=== PATIENT | female | born 1950 | race Caucasian/White ===

== ENCOUNTER 2023-06-15 22:35 | Emergency (ER) | payer MEDICARE, OTHER, SELFPAY ==
[2023-06-15 22:40] VITALS: BP 146/74
[2023-06-15 22:56] LABS: % Basophils 0.2 % (0-2); % Eosinophils 0.5 % (0-6); % Immature Granulocytes 0.3 % (0-0.5); % Lymphocytes 11.4 % (20.5-51.1); % Neutrophils 78.6 % (42.2-75.2); Absolute Eosinophils 0.1 10^3/uL (0-0.7); Absolute Lymphocytes 1.2 10^3/uL (1.2-3.4); Absolute Monocytes 0.9 10^3/uL (0.1-0.6); Absolute Neutrophils 8.1 10^3/uL (1.4-6.5); Hematocrit 37.6 % (37.0-47.0); Hemoglobin 13.3 g/dL (12.0-16.0); Mean Corp Hgb Conc. 35.4 g/dL (33.0-37.0); Mean Corpuscular Hgb 30.7 pg (27.0-31.0); Mean Corpuscular Volume 86.8 fL (81.0-99.0); Mean Platelet Volume 8.8 fL (7.4-10.4); Nucleated Red Blood Cells % 0 %; Platelet Count 307 10^3/uL (130-400); Red Blood Cell Count 4.33 10^6/uL (4.20-5.40); Red Cell Dist. Width 12.6 % (11.5-14.5); White Blood Cell Count 10.3 10^3/uL (4.8-10.8)
[2023-06-15 23:16] LABS: ALT (SGPT) 49 U/L (0-35); AST (SGOT) 75 U/L (14-36); Albumin 4.1 g/dl (3.5-5.0); Alkaline Phosphatase 86 U/L (38-126); Blood Urea Nitrogen 20 mg/dl (7-17); Calcium 9.8 mg/dl (8.4-10.2); Carbon Dioxide 31 mmol/L (22-30); Chloride 101 mmol/L (98-107); Glucose 151 mg/dl (70-99); Potassium 3.4 mmol/L (3.5-5.1); Sodium 134 mmol/L (135-145); Total Bilirubin 0.5 mg/dl (0.2-1.3); Total Protein 6.6 g/dl (6.3-8.2); eGFR > 60.00
[2023-06-16] VITALS: BP 133/70
--- NOTE | 2023-06-16 00:03 | ED.GENMED ---
History of Present Illness
General
Chief Complaint: Blood Pressure Problem
Source: patient
Exam Limitations: none
Time Seen by Provider: 06/15/23 23:49
Travel History
Have you had any contact with someone who has COVID-19?: No
Do you have any symptoms of coronavirus? Fever > 100 degrees, chills, cough, shortness of breath, sore throat, loss of taste or smell, muscle aches, or headache?: No
History of Present Illness
History of Present Illness:
This is a 72 year old female that comes in with c/o hypertension and feels her legs are swollen. Patient states that her has pancreatic cancer and is at the end. States that he is now on Hospice. States that she is under a lot of stress.
States that she as checking her BP at home and the systolic was 140-150/ 80 with a heart rate of 91. States that tonight she also felt that her ankles were swelling so she thought she needed to be seen. States that she has been sitting all day.
Denies any fever, chills, chest pain, SOB, abd pain, nausea, vomiting, diarrhea, headache, dizziness, urinary burning.
Past History
Past History
ED Past Surgical History: Appendectomy, Gynecological (Hysterectomy, Tubal) and Other (Breast augmentation and then removal of Implants)
Social History
Tobacco: Non-smoker
Alcohol: Occasional
Personal:
Living: with family
Review of Systems
Review of Systems
All Other Systems: ROS reviewed and negative except as documented in HPI and ROS
Constitutional: Reports no symptoms; Denies fever or chills
EENT: Reports no symptoms
Respiratory: Reports no symptoms; Denies cough or trouble breathing
Cardiac: Reports no symptoms; Denies chest pain
ABD/GI: Reports no symptoms; Denies abdominal pain, nausea, vomiting or diarrhea
: Reports no symptoms; Denies dysuria, frequency or urgency
Musculoskeletal: Reports other (Feels her ankles are swelling)
Skin: Reports no symptoms
Neurological: Reports no symptoms; Denies dizzy or headache
Psychiatric: Reports no symptoms
Phy Exam
General Physical Exam
General Presentation: well appearing and no apparent distress
General age: appears stated age
General Skin: warm and dry
General Habitus: elderly
General Mental: alert
General Hydration: appears well hydrated
ENT Exam
ENT Exam: TM's normal, pharynx normal and neck supple
Eye Exam
Eye Exam: EOMI
Cardiovascular Exam
Cardiovascular Exam: regular rate/rhythm, no edema, no murmur and normal peripheral pulses
Pulmonary Exam
Pulmonary Exam: lungs clear, no respiratory distress, no rales, chest non tender, no crackles, no rhonchi, no wheezing and no cough
Gastrointestinal Exam
Gastrointestinal Exam: normal bowel sounds, non tender, soft, no organomegaly, no pulsatile mass and non distended
Musculoskeletal Exam
Musculoskeletal Exam: full ROM and no edema
Skin Exam
Skin Exam: normal color, warm/dry, no rash and no petechia
Psychiatric Exam
Psychiatric Exam: normal mood/affect
Course
Orders/Labs/Results
Orders:
Orders
06/15/23 22:46
Complete Blood Count/With Diff Urgent
Comprehensive Metabolic Panel Urgent
Abnormal Lab Results
06/15/23
22:46
Absolute Neuts (auto) 8.1 H 10^3/uL
(1.4-6.5)
Absolute Monos (auto) 0.9 H 10^3/uL
(0.1-0.6)
Neutrophils % 78.6 H %
(42.2-75.2)
Lymphocytes % 11.4 L %
(20.5-51.1)
Sodium 134 L mmol/L
(135-145)
Potassium 3.4 L mmol/L
(3.5-5.1)
Carbon Dioxide 31 H mmol/L
(22-30)
BUN 20 H mg/dl
(7-17)
Glucose 151 H mg/dl
(70-99)
AST 75 H U/L
(14-36)
ALT 49 H U/L
(0-35)
06/15/23 22:46
06/15/23 22:46
Slight Dehydration. glucose nonfasting. ASt/ALT elevation.
Vital Signs
Initial and Last Documented VS:
Initial Vital Signs
Temp Pulse Resp BP Pulse Ox
97.9 F 86 16 146/74 99
06/15/23 22:40 06/15/23 22:40 06/15/23 22:40 06/15/23 22:40 06/15/23 22:40
Last Documented Vital Signs
Temp Pulse Resp BP Pulse Ox
97.9 F 86 16 146/74 99
06/15/23 22:40 06/15/23 22:40 06/15/23 22:40 06/15/23 22:40 06/15/23 22:40
MDM/Problems Addressed
Differential Diagnosis Includes:
Anxiety,
MDM/Problems Addressed:
This is a 72 year old female that comes in with c/o hypertension and her ankles swelling. States that her is on Hospice and dying of Pancreatic Cancer. States that she has been under a lot of stress. States that today she felt her BP was
elevated at 140-150 and that her ankles were swelling.
Explained to patient that right now her BP is 125/62. Patient states that she relaxed after she got the warm blanket. Explained that there is no obvious swelling in the ankles but she feels that they are swollen. At this time would not give patient
anything for her BP and suggested that she needs to follow up with the PCP as she may just need something to help with anxiety to get her over the hump. Patient to watch her sodium intake and elevate her legs when sitting around. Patient to return
with any concerns.
Chronic conditions affecting care:
NA
Acute Exacerbation and/or Progression of Chronic Illness:
NA
*Pulse Oximetry
Patient hypoxic: no
*EKG
Interpreted by ED Provider?: NA
Rate: EKG- N/A
*Technical Proposal Writer Interpretation
Rate: normal
Heart Rate: 81
Rhythm: sinus
*Critical Care Note
Total Time (30-74mins, 75-104mins- exclusive of procedures): Not Applicable
ED Attending Note
-
Portions of this chart may have been created with voice recognition software.� Occasional wrong word or��sound alike� substitutions may have occurred due to the inherent limitations of voice recognition software.
Discharge Plan
Departure
Patient Disposition: Home (Routine Discharge)
Date of Disposition: 06/16/23
Time of Disposition: 00:11
Patient with high blood pressure during this ER visit?: Yes
Condition: Good
Covid-19: Not Applicable
Discharge Problem:
Stress
Instructions: Anxiety, Adult (DC), BLOOD PRESSURE
Activity Restrictions/Additional Instructions:
As discussed, your blood work shows you are a little dehydrated. Please increase your water intake to 8-8oz glasses daily. Please watch your sodium intake as this will also cause swelling. Please follow up with the family doctor for recheck. You may
need something for the anxiety to help you. IF YOU HAVE ANY OTHER CONCERNS PLEASE RETURN TO THE EMERGENCY ROOM.
Interventions
Interventions:
*Risk Screen - Suicide Last Done: 06/16/23 00:00
*General Assessment Last Done: 06/15/23 22:40
*Neglect/Abuse Screening Last Done: 06/16/23 00:00
ED- Fall Risk Assessment Last Done: 06/16/23 00:00
*ED COVID-19 Vaccine History Last Done: 06/15/23 22:40
ED- Cardiac Assessment Last Done: 06/16/23 00:00
ED- Neurological Assessment Last Done: 06/16/23 00:00
ED- Pulmonary Assessment Last Done: 06/16/23 00:00
== END 2023-06-16 00:16 | disposition home or self-care (01) ==
LOC: EMR 22:35
PROVIDERS: Emergency Medicine; EMERGENCY PHYSICIAN Student in an Organized Health Care Education/Training Program
DX: Z73.3 Stress, not elsewhere classified (principal); Z63.8 Other specified problems related to primary support group; M79.89 Other specified soft tissue disorders; E86.0 Dehydration; I10 Essential (primary) hypertension; F41.9 Anxiety disorder, unspecified; Z88.2 Allergy status to sulfonamides
CPT/HCPCS: 99283; 80053; 85025

== ENCOUNTER 2023-06-21 15:07 | Inpatient (IN) | payer MEDICARE, OTHER, SELFPAY ==
--- NOTE | 2023-06-21 11:45 | ED.GENMED ---
History of Present Illness
<Anselmo Young PA-C - Last Filed: 06/21/23 15:12>
General
Chief Complaint: Overdose Intentional
Source: ambulance crew
Time Seen by Provider: 06/21/23 11:45
History of Present Illness
History of Present Illness:
72-year-old female presenting to the emergency department via EMS after family had found the patient in her bedroom unresponsive on the floor, suspected to have taken an unknown amount of Xanax at unknown time. EMS reports that patient's
last week and patient has been living on her own since. Family went to go check on the patient after not hearing from her in about 24 hours. EMS reports that patient is believed to have taken her 's Xanax as well as her own that
an unknown quantity. They found patient with hard and stool surrounding her. Unable to obtain any history from the patient due to her somnolence.
Past History
<Anselmo Young PA-C - Last Filed: 06/21/23 15:12>
Past History
ED Past Surgical History: Appendectomy, Gynecological (Hysterectomy, Tubal) and Other (Breast augmentation and then removal of Implants)
Social History
Tobacco: Non-smoker
Alcohol: Occasional
Drug: None
Personal:
Living: with family
Review of Systems
<Anselmo Young PA-C - Last Filed: 06/21/23 15:12>
Review of Systems
Unable to obtain full review of systems at this time due to: due to acuity
Phy Exam
<Anselmo Young PA-C - Last Filed: 06/21/23 15:12>
Physical Exam
Physical Exam:
GENERAL: Somnolent but arousable to loud voice and sternal rub
Head: Normocephalic atraumatic
EYE: conjunctiva clear, pupils 3 mm, sluggish
NECK: Supple
ENT: o/p clr, dry mucous membranes
CARDIAC: Regular rate and rhythm, no murmur
LUNGS: Clear breath sounds bilaterally, no acute respiratory distress, no wheezes/rales/rhonchi
NEUROLOGICAL: Alert a unable to assess
SKIN: Warm and dry, skin intact.
MUSCULOSKELETAL: well perfused.
PSYCH: Unable to assess
Scores
<Anselmo Young PA-C - Last Filed: 06/21/23 15:12>
Heart Failure Risk
Heart Failure Risk Score: Not Applicable
Heart Score for Chest Pain Patients
STEMI patient?: Not applicable
Withdrawal Assessment of Alcohol
Withdrawal Assessment Completed?: Not applicable
Course
<Anselmo Young PA-C - Last Filed: 06/21/23 15:12>
Orders/Labs/Results
Orders:
Orders
06/21/23 11:47
Electrocardiogram (*1) Urgent
Reason for Study: Other
Other Reason for Exam: overdose
EKG- Treatment ONCE
06/21/23 11:58
Complete Blood Count/With Diff Urgent
PTT Urgent
Prothrombin Time Urgent
06/21/23 12:21
Add On- LAB Urgent
Tests Added?: alcohol level
06/21/23 12:33
Marcel Hugger-Treatment ONCE
Patient's goal temperature:: 97 F
Additional Instructions:: Temperature and skin assessment per unit protocol
06/21/23 12:41
Fentanyl, Urine Urgent
Urinalysis Reflex To Culture Urgent
Date Specimen was Collected: 06/21/23
Time Specimen was Collected: 12:36
Urine Drug Abuse Screen Urgent
Date Specimen was Collected: 06/21/23
Time Specimen was Collected: 12:36
Urine Microscopic Reflex Cult Urgent
Urine Culture Urgent
CHANDLER Source: U
Specimen Description:
Date Specimen was Collected: 06/21/23
Time Specimen was Collected: 12:36
06/21/23 13:04
0.9% Sodium Chloride 1000 ml [Nss] 1,000 ml IV BOLUS
06/21/23 13:24
Acetaminophen Urgent
Comprehensive Metabolic Panel Urgent
Creatine Phosphokinase Urgent
Magnesium Urgent
Salicylate Urgent
06/21/23 14:22
Admit/Transfer Patient As Directed
Co-Sign Provider:
Level of Care: Inpatient admission
Assign to:: ICU
Physician / Group: Sunil
Diagnosis: Xanax Overdose
Reason for Hospitalization: overdose
Expected length of stay greater than two midnights?: Yes
ELOS- Estimated Length of Stay in days: 3
I certify the patient meets the requirements for IP care: Yes
Code Status As Directed
Resuscitation Status: Full Code
06/21/23 14:32
CR Chest Portable - 1 View Urgent
Comment:
Reason For Exam: overdose
Reason Study Needs to be Portable: Patient Unstable
06/21/23 14:35
Bipap [RESP] Routine
Patient to use own unit?: No
Inspiratory Pressure (cm H2O): 10
Expiratory Pressure (cm H2O): 5
06/21/23 14:45
NORepinephrine 4 MG/250 ML [Levophed] 4 mg in 250 ml IV PER PROTOCOL
Initial dose in mcg/min, then titrate:: 2
Titrate to keep:: SBP > 90 mmHg
Titrate by mcg/min:: 1-2 mcg/min
Frequency of titrations (minutes):: 5
Maximum dose in ICU in mcg/min:: 30
Maximum dose in IMU in mcg/min:: 8
Maximum dose in IVU in mcg/min:: 4
Begin to taper infusion when:: Remained at goal for 4hrs
Taper by mcg/min:: 1-2 mcg/min
Frequency of taper (minutes) if patient maintains goal:: 30
Taper to off?: Yes
If infusion off & no longer maintaining goal:: Contact Provider
Abnormal Lab Results
06/21/23 06/21/23 06/21/23
11:46 11:58 12:41
WBC 11.0 H 10^3/uL
(4.8-10.8)
Absolute Neuts (auto) 9.4 H 10^3/uL
(1.4-6.5)
Absolute Lymphs (auto) 0.6 L 10^3/uL
(1.2-3.4)
Absolute Monos (auto) 1.0 H 10^3/uL
(0.1-0.6)
Neutrophils % 85.1 H %
(42.2-75.2)
Lymphocytes % 5.6 L %
(20.5-51.1)
Urine Nitrite (Reflex) Positive A
(Negative)
Urine Bacteria (Reflex) Many A
(Negative)
U Benzodiazepines Scrn Positive H
(Negative)
POC Glucose 111 H mg/dl
(70-99)
06/21/23 11:58
Vital Signs
Initial and Last Documented VS:
Initial Vital Signs
BP
163/93
06/21/23 11:45
Last Documented Vital Signs
Temp Pulse Resp BP Pulse Ox
93.5 F L 66 17 87/53 94
06/21/23 12:31 06/21/23 14:20 06/21/23 14:20 06/21/23 14:20 06/21/23 14:20
<Irving Mckay, DO - Last Filed: 06/21/23 11:52>
Orders/Labs/Results
Orders:
Orders
06/21/23 11:47
Electrocardiogram (*1) Urgent
Reason for Study: Other
Other Reason for Exam: overdose
EKG- Treatment ONCE
06/21/23 11:58
Complete Blood Count/With Diff Urgent
PTT Urgent
Prothrombin Time Urgent
06/21/23 12:21
Add On- LAB Urgent
Tests Added?: alcohol level
06/21/23 12:33
Marcel Hugger-Treatment ONCE
Patient's goal temperature:: 97 F
Additional Instructions:: Temperature and skin assessment per unit protocol
06/21/23 12:41
Fentanyl, Urine Urgent
Urinalysis Reflex To Culture Urgent
Date Specimen was Collected: 06/21/23
Time Specimen was Collected: 12:36
Urine Drug Abuse Screen Urgent
Date Specimen was Collected: 06/21/23
Time Specimen was Collected: 12:36
Urine Microscopic Reflex Cult Urgent
Urine Culture Urgent
CHANDLER Source: U
Specimen Description:
Date Specimen was Collected: 06/21/23
Time Specimen was Collected: 12:36
06/21/23 13:04
0.9% Sodium Chloride 1000 ml [Nss] 1,000 ml IV BOLUS
06/21/23 13:24
Acetaminophen Urgent
Comprehensive Metabolic Panel Urgent
Creatine Phosphokinase Urgent
Magnesium Urgent
Salicylate Urgent
06/21/23 14:22
Admit/Transfer Patient As Directed
Co-Sign Provider:
Level of Care: Inpatient admission
Assign to:: ICU
Physician / Group: Sunil
Diagnosis: Xanax Overdose
Reason for Hospitalization: overdose
Expected length of stay greater than two midnights?: Yes
ELOS- Estimated Length of Stay in days: 3
I certify the patient meets the requirements for IP care: Yes
Code Status As Directed
Resuscitation Status: Full Code
06/21/23 14:32
CR Chest Portable - 1 View Urgent
Comment:
Reason For Exam: overdose
Reason Study Needs to be Portable: Patient Unstable
06/21/23 14:35
Bipap [RESP] Routine
Patient to use own unit?: No
Inspiratory Pressure (cm H2O): 10
Expiratory Pressure (cm H2O): 5
06/21/23 14:45
NORepinephrine 4 MG/250 ML [Levophed] 4 mg in 250 ml IV PER PROTOCOL
Initial dose in mcg/min, then titrate:: 2
Titrate to keep:: SBP > 90 mmHg
Titrate by mcg/min:: 1-2 mcg/min
Frequency of titrations (minutes):: 5
Maximum dose in ICU in mcg/min:: 30
Maximum dose in IMU in mcg/min:: 8
Maximum dose in IVU in mcg/min:: 4
Begin to taper infusion when:: Remained at goal for 4hrs
Taper by mcg/min:: 1-2 mcg/min
Frequency of taper (minutes) if patient maintains goal:: 30
Taper to off?: Yes
If infusion off & no longer maintaining goal:: Contact Provider
Abnormal Lab Results
06/21/23 06/21/23 06/21/23
11:46 11:58 12:41
WBC 11.0 H 10^3/uL
(4.8-10.8)
Absolute Neuts (auto) 9.4 H 10^3/uL
(1.4-6.5)
Absolute Lymphs (auto) 0.6 L 10^3/uL
(1.2-3.4)
Absolute Monos (auto) 1.0 H 10^3/uL
(0.1-0.6)
Neutrophils % 85.1 H %
(42.2-75.2)
Lymphocytes % 5.6 L %
(20.5-51.1)
Urine Nitrite (Reflex) Positive A
(Negative)
Urine Bacteria (Reflex) Many A
(Negative)
U Benzodiazepines Scrn Positive H
(Negative)
POC Glucose 111 H mg/dl
(70-99)
06/21/23 11:58
Vital Signs
Initial and Last Documented VS:
Initial Vital Signs
BP
163/93
06/21/23 11:45
Last Documented Vital Signs
Temp Pulse Resp BP Pulse Ox
93.5 F L 66 17 87/53 94
06/21/23 12:31 06/21/23 14:20 06/21/23 14:20 06/21/23 14:20 06/21/23 14:20
<Anselmo Young PA-C - Last Filed: 06/21/23 15:12>
MDM/Problems Addressed
Differential Diagnosis Includes:
Suicide attempt, benzodiazepine overdose, opioid overdose, respiratory depression secondary to overdose
MDM/Problems Addressed:
72-year-old female presenting the emergency department via EMS for reported overdose to be believed Xanax. There was a bottle of patient's 's Xanax next to her which were 1 mg tablets and was estimated to be about 5 or 7 tablets left in
this bottle but it was unknown as to how many were initially there. Patient also had her own prescription for 0.25 mg Xanax and there were about 5 tablets left in this bottle as well. Based off of our record review it appears that this
prescription was filled in July 2022. At present time will provide supportive care to the patient with oxygen as needed. She will require admission for continued monitoring and ultimately need psychiatric evaluation due to the suspected overdose
attempt.
<Anselmo Young PA-C - Last Filed: 06/21/23 15:12>
*Pulse Oximetry
Patient hypoxic: no
*EKG
Interpreted by ED Provider?: Yes
Comparison EKG: no comparison EKG present
Heart Rate: 67
Rate: normal
Rhythm: sinus
[place]: normal axis
Ischemia: no ischemia
*Stock Pitcher Interpretation
Rate: normal
Rhythm: sinus
*Critical Care Note
Total Time (30-74mins, 75-104mins- exclusive of procedures): Not Applicable
Data Reviewed
Review of Other/Old Records Reveals: Records
<Anselmo Young PA-C - Last Filed: 06/21/23 15:12>
Comment
Comment:
Patient was seen in the emergency department earlier in May with what appears to be an adjustment disorder related to her being placed on hospice from his pancreatic cancer. No acute complications were found during this visit and she
was ultimately discharged home.
Patient Management
Discussion with other providers: Hospitalist
Escalation/DeEscalation of care consider admission/obs:
Hospitalist is aware and accepts patient for continued evaluation and treatment. Will start the patient in the ICU for close monitoring. Patient remains somnolent however oxygen remains within normal limits. Family is also now at the bedside.
Patient has no history of similar. They are aware of the severity of patient's presentation and are in agreement with all treatment plans.
ED Attending Note
<Anselmo Young PA-C - Last Filed: 06/21/23 15:12>
-
Portions of this chart may have been created with voice recognition software.� Occasional wrong word or��sound alike� substitutions may have occurred due to the inherent limitations of voice recognition software.
<Irving Mckay DO - Last Filed: 06/21/23 11:52>
ED Attending Note
Patient seen and examined by attending physician: Yes
I performed the substantive portion of visit, reviewed & personally made and approve the management plan that is documented in note by myself or MELISSA.: Yes
ED Attending Note:
I have reviewed and agree with history and treatment plan by Jose Maria Young. My exam reveals 72-year-old female who is somnolent but responsive to noxious stimuli. When questioned if she took Xanax, she replies yes.
Discharge Plan
Departure
Patient Disposition: Admit
Date of Disposition: 06/21/23
Time of Disposition: 13:25
Presentation/result/management discussed w/ accepting MD/DO: Hospitalist
Discharge Problem:
Benzodiazepine overdose, Hypothermia
Interventions
Interventions:
*Risk Screen - Suicide Last Done: 06/21/23 12:03
*General Assessment Last Done: 06/21/23 12:03
*Neglect/Abuse Screening Last Done: 06/21/23 12:03
*ED COVID-19 Vaccine History Last Done: 06/21/23 12:03
ED- Cardiac Assessment Last Done: 06/21/23 12:58
ED- Neurological Assessment Last Done: 06/21/23 12:58
ED-Psychological Assessment Last Done: 06/21/23 12:58
ED- Pulmonary Assessment Last Done: 06/21/23 12:58
[2023-06-21 11:48] LABS: Glucose - Point of Care 111 mg/dl (70-99)
[2023-06-21 12:12] LABS: % Basophils 0.1 % (0-2); % Eosinophils 0.1 % (0-6); % Immature Granulocytes 0.4 % (0-0.5); % Lymphocytes 5.6 % (20.5-51.1); % Monocytes 8.7 % (1.7-9.3); % Neutrophils 85.1 % (42.2-75.2); Absolute Lymphocytes 0.6 10^3/uL (1.2-3.4); Absolute Neutrophils 9.4 10^3/uL (1.4-6.5); Hematocrit 39.7 % (37.0-47.0); Hemoglobin 14.3 g/dL (12.0-16.0); Mean Corpuscular Hgb 30.9 pg (27.0-31.0); Mean Corpuscular Volume 85.7 fL (81.0-99.0); Nucleated Red Blood Cells % 0 %; Platelet Count 267 10^3/uL (130-400); Red Blood Cell Count 4.63 10^6/uL (4.20-5.40); Red Cell Dist. Width 12.3 % (11.5-14.5)
[2023-06-21 12:24] LABS: APTT 24.8 Sec (23.4-35.0); INR 0.89; PT 11.9 Sec (11.4-14.6)
[2023-06-21] MEDS: NSS 1000 IV (13:04)
[2023-06-21 13:08] LABS: Urine Albumin Negative (Neg - Trace); Urine Bilirubin Negative (Negative); Urine Character Clear (Clear); Urine Color Yellow; Urine Glucose Negative (Negative); Urine Ketone Negative (Negative); Urine Leukocyte Negative (Negative); Urine Nitrite Positive (Negative); Urine Occult Blood Negative (Negative); Urine Urobilinogen Negative (Neg - 1+)
[2023-06-21 13:26] LABS: Benzodiazepines Positive (Negative)
[2023-06-21 13:33] LABS: Urine Amorphous Seen; Urine Bacteria Many (Negative); Urine Mucus Few; Urine Red Blood Cell 0-2 /HPF (0-2); Urine Squamous Cell 0-2 /LPF (Few); Urine White Cell 0-2 /HPF (0-5)
--- NOTE | 2023-06-21 13:52 | PHANOTE ---
06/21/2023, med rec tech, was not able to speak to pt. at time of interview; pt.'s family brought in some bottles of meds.; family unsure what meds. pt. is currently taking; family brought in pt.'s Alprazolam 0.25 mg prescription bottle as well as
pt.'s 's Alprazolam 1 mg prescription; pt. is believed to have taken 's prescription but I was unable to confirm this. Family also brought in Diphenhydramine 25 mg capsules but is unsure if pt. is taking this or how they take it. Pt.
filled their Estradiol 0.5 mg tablets on 02/26/2023 for a 90-day supply and their Alprazolam 0.25 mg tablets on 07/21/2022 for a 30-day supply. Left home medication list unconfirmed.
--- NOTE | 2023-06-21 14:33 | HPS.HSE ---
Addendum entered and electronically signed by Alejandro Barber MD 06/21/23 16:55:
Pt very letharegic
situation reviewed with son Luis Felipe and von-i-romeo Bueno
Pt grieving over loss of spouse
Seen independently and agree with PA note
Lungs bibasilar coarse rales, no wheeze
CV reg
Abd soft, nondistended
Ext no edema
Imp: concern for aspiration PNA
s/p Xanax OD
P:IVF
BiPap
empiric abx, recheck CBC in AM
Original Note:
Family Physician
-
Family Physician: NOT KNOW UNKNOWN - PT DOES
Chief Complaint
-
Overdose
History of Present Illness
Pt is a 72yo F without significant past medical history who presents following an apparent overdose. She was found on the floor of her bathroom after her family had not heard from her for over 24 hours. EMS reports there being two bottles of Xanax
though it is unclear how many tablets were taken. Patient's recently on hospice from pancreatic cancer.
Medical History
Past Medical History
Past Medical History: Reports None
Past Surgical History: Reports Other
Additional Past Surgical History:
Appendectomy
Hysterectomy
Breast Augmentation
Social History
Unable to obtain full social history at this time due to: Acuity
Family History
Family History: Unable to Obtain
Allergies / Home Medications
Allergies reflects when Allergies were last updated in [facility].
Home Medications with original date entered in [facility]
Allergy/Medication List:
Allergies
Allergy/AdvReac Type Severity Reaction Status Date / Time
Sulfa (Sulfonamide Allergy Unknown Unknown Verified 06/21/23 11:42
Antibiotics)
Home Medications
alprazolam 0.25 mg tablet 0.25 mg PO HS PRN sleep 06/21/23
estradiol 0.5 mg tablet 0.5 mg PO DAILY 06/21/23
Review of Systems
-
Unable to obtain full review of systems at this time due to: Acuity
Physical Exam
Vital Signs
Vital Signs
Temp Pulse Resp BP Pulse Ox
93.5 F L 66 17 87/53 94
06/21/23 12:31 06/21/23 14:20 06/21/23 14:20 06/21/23 14:20 06/21/23 14:20
Physical Exam
General: Well Developed and Well Nourished
HEENT: Oxygen (Nasal Cannula)
Respiratory: Rhonchi (Throughout)
Cardiac: S1/S2 and Regular Rhythm
GI: Soft and Non Tender
Rectal: Deferred by Provider
Musculoskeletal: No Clubbing, No Cyanosis and No Edema
Skin: Warm and Dry
Neuro: Sedated
Laboratory Results
-
06/21/23 11:58
06/21/23 20:00
Laboratory Results
PT 11.9 Sec (11.4-14.6) 06/21/23 11:58
INR 0.89 06/21/23 11:58
APTT 24.8 Sec (23.4-35.0) 06/21/23 11:58
Total Bilirubin Cancelled 06/21/23 12:41
AST Cancelled 06/21/23 12:41
ALT Cancelled 06/21/23 12:41
Alkaline Phosphatase Cancelled 06/21/23 12:41
Data Reviewed
-
Lab Data: Labs Reviewed by me
Impression/Plan
-
Apparent Intentional Xanax Overdose
-Patient requires intensive monitoring in ICU
-Consult Health Policy Nurse
-Consult Psych
-Start Levophed for hypotension
-Continue BIPAP for respiratory support
-Check CXR
-Continue IVFs
DVT proph: SCDs
Code Status: Full Code
--- NOTE | 2023-06-21 14:36 | CON.INTV ---
Consultation
Consultation Request
Date/Time Consultation Requested: 06/21/2023-3 PM
Date/Time Consultation Performed: 06/21/2023-3:30 PM
Requesting Provider: Hospitalist
Performing Provider: Dr. Stewart
Reason for Consultation: Overdose/critical care management
Medical History
-
Chief Complaint: Overdose
History of Present Illness:
72-year-old female who was found unresponsive on the floor suspected having taken an unknown amount of Xanax after her last week. Telecommunications Facility Examiner consulted for overdose/critical care management 06/21/2023. Patient is minimally
responsive and review of systems was unobtainable. History with son and ifkpsjhv-bm-fvg. They had not heard from her by 9 AM and became concerned. The son went over and found her unresponsive. She was mumbling some words at that time and was
moving her extremities. There is no obvious documentation of prolonged hypotension or hypoxemia. The patient is now not arousable. She reportedly had some movement earlier. She did not take all the Xanax that was in 2 separate bottles-her
recently 's Xanax and her Xanax. They report that she recently was under's tremendous stress. She went to the emergency room recently for hypertension and leg swelling. She did not have significant leg swelling and her blood
pressure was fairly rapidly controlled. She did not go home on home meds. She recently saw her as primary care physician who recommended psychiatric evaluation.
Past Medical History
Past Medical History: None (Appendectomy. Hysterectomy. Tubal ligation. Breast augmentation with subsequent removal of implants.)
Social History
Tobacco: Non-smoker
Alcohol: None
Drug: None
Personal:
Living: Alone
Occupational Exposures: No known tuberculosis exposure
Environmental Exposures: No known asbestos exposure
Family History
Family History: Reviewed & Not Pertinent
Allergies / Home Medications
Allergies
Allergy/AdvReac Type Severity Reaction Status Date / Time
Sulfa (Sulfonamide Allergy Unknown Unknown Verified 06/21/23 11:42
Antibiotics)
Home Medications
Medication Instructions Recorded Confirmed Last Taken Type
alprazolam 0.25 mg tablet 0.25 mg PO HS PRN sleep 06/21/23 Unknown History
estradiol 0.5 mg tablet 0.5 mg PO DAILY 06/21/23 Unknown History
Review of Systems
-
Unable to Obtain full review of systems at this time due to: Other (Per HPI)
Vitals / Labs / Diagnostic Testing
Vital Signs
Temp Pulse Resp BP Pulse Ox
93.5 F L 66 17 87/53 94
06/21/23 12:31 06/21/23 14:20 06/21/23 14:20 06/21/23 14:20 06/21/23 14:20
Lab Data
06/21/23 11:58
06/21/23 20:00
Laboratory Results
06/21/23
11:58
PT 11.9
INR 0.89
APTT 24.8
Diagnostic Testing:
Physical Exam
-
Exam:
Well-nourished and well-developed in no apparent distress
HEENT-atraumatic, normocephalic
Neck-supple, no JVD, no bruit
Heart-regular rate and rhythm-no murmurs, rubs or gallops
Chest-clear to auscultation, no wheezes, crackles
Back-no tenderness
Abdomen-soft, nontender, nondistended, no hepatosplenomegaly
Extremities-no cyanosis, clubbing, edema and good peripheral pulses
Integument-intact, no rashes, lesions or ecchymosis
Neurologically not alert, not oriented moving extremities
Assessment
-
72-year-old female who was found unresponsive on the floor suspected having taken an unknown amount of Xanax after her last week. Telecommunications Facility Examiner consulted for overdose/critical care management 06/21/2023.
Assessment
Xanax overdose-suspect intentional intentional-recent intense grieving the loss of her last week from pancreatic cancer
Urine drug screen positive for benzodiazepines
Depression
Mild leukocytosis
UTI suspected
Mild hypokalemia
Conditions present prior to admission:
Appendectomy.
Hysterectomy.
Tubal ligation.
Breast augmentation with subsequent removal of implants.
Plan
Patient will be admitted to medical intensive care
Supplemental oxygen
Noninvasive ventilation if severe respiratory depression/hypercapnia
Intubate and mechanically ventilate if need to protect airway/severe hypercapnia
Aspiration precautions
Obtain VBG to ensure hypercapnia not present-low suspicion with respiratory rate 20 and good volumes, no tachycardia, no hypotension
Follow CPK
Intravenous fluids
Nephrology and bicarb if CPK significantly elevated
Etiology of drug overdose likely Xanax
Monitor for arrhythmias-monitor QTC, QRS, etc.
CT head
Neurology evaluation
EEG
For potential benzodiazepine overdose
Monitor for sedation, airway protection, intubate if necessary, supportive care
Consider propylene glycol toxicity if parenteral diazepam or lorazepam was used
Flumazenil could be considered
Intravenous fluids
Warming blanket
Norepinephrine as needed
Suspected intentional as patient was grieving significantly with the loss of her recently, however, she had not slept in 2 nights and she may have just taken quite a few Xanax to help her sleep-we will need to further question her once she
wakes up.
Psychiatric evaluation
1:1
DVT prophylaxis
Aspiration precautions
Early nutrition
Early mobilization
Reviewed with son and vwmexfbi-mu-upv at the bedside and updated in regards to current clinical condition, expected treatment plan and potential prognosis
Critical care statement: A total of 55 minutes of critical care time was provided for this patient today. This includes management of unstable vital signs, evaluation of the patient at bedside, reviewing the patient's pertinent medical records
including radiographs, microbiology, laboratory evaluations, and discussion with primary team and critical care nursing.
Diagnostic data:
Chest x-ray 06/21/2023-NAD, mild bibasilar subsegmental atelectasis
Data Reviewed
-
EKG: Report reviewed by me
Radiology: Image personally visualized and interpreted and Report reviewed by me
Labs: Labs reviewed by me
Old Records: Reviewed
Critical Care Time (in minutes): 55
[2023-06-21 14:54] LABS: Amphetamines Negative (Negative); Barbiturates Negative (Negative); Buprenorphine Negative (Negative); Cocaine Negative (Negative); Marijuana Negative (Negative); Methadone Negative (Negative); Methamphetamines Negative (Negative); Opiates Negative (Negative); Phencyclidine Negative (Negative); Tricyclic Antidepressants Negative (Negative)
[2023-06-21] MEDS: LEVOPHED 250 IV (15:20)
[2023-06-21 15:59] LABS: ALT (SGPT) 35 U/L (0-35); AST (SGOT) 30 U/L (14-36); Acetaminophen < 10 ug/ml (10-30); Albumin 3.3 g/dl (3.5-5.0); Alkaline Phosphatase 82 U/L (38-126); Blood Urea Nitrogen 9 mg/dl (7-17); Calcium 8.2 mg/dl (8.4-10.2); Carbon Dioxide 26 mmol/L (22-30); Chloride 107 mmol/L (98-107); Creatine Phosphokinase 117 U/L (30-135); Estimated Creatinine Clearance 68 ml/min; Glucose 92 mg/dl (70-99); Magnesium 2.2 mg/dl (1.6-2.3); Potassium 3.4 mmol/L (3.5-5.1); Salicylate < 1.0 mg/dl (2.0-20.0); Sodium 135 mmol/L (135-145); Total Bilirubin 0.7 mg/dl (0.2-1.3); Total Protein 5.6 g/dl (6.3-8.2); eGFR > 60.00
[2023-06-21 16:04] LABS: Fentanyl, Urine Negative (Negative)
[2023-06-21] MEDS: UNASYN IV ×2 (18:08→23:32)
[2023-06-21] MEDS: D5/0.45%NSS with KCL 20 MEQ 1000 IV (18:16)
--- NOTE | 2023-06-21 18:35 | PTCARENOTE ---
16:45 patient admitted from ED to room 3370 . admission Dx Xanax overdose . patient received on Levophed at 3mcg infusing via RT FA # [phone].
Patient unresponsive. Able to move b/l arms and legs . Pupils +2 sluggish. VS temp axillary 97.8. BP via left upper arm 115/51 MAp 71; RR 20-21; SR POX 97% RA. CO2 29; Levophed will be titrated per protocol . Non verbal s/s 0 pain . Lungs
diminished. no edema. Skin intact . Incontinent of bowel and bladder. Purwick catheter placed to monitor urinal output. . HoB of bed elevated
--- NOTE | 2023-06-21 20:00 | PTCARENOTE ---
Pt received largely unresponsive. Occasionally opens eyes to stimuli but does not respond verbally or follow commands. Levophed off. Assessment as charted. Bladder scan done and revealed 677ml. Straight cathed for 750ml. 1:1 remains at bedside.
--- NOTE | 2023-06-21 23:35 | PTCARENOTE ---
Pt awake briefly, restless, pulling at gown. Able to squeeze hands on command but unable to answer questions. Did say 'I want to go home'. Sleeping again now.
[2023-06-22] MEDS: D5/0.45%NSS with KCL 20 MEQ 1000 IV ×2 (01:34→09:43)
--- NOTE | 2023-06-22 03:42 | PTCARENOTE ---
Pt awakened for a short time and was drowsy but oriented. Stated she took the xanax because she didn't want to live anymore due to 's passing and work piling up. Pt dozing at present. Will continue to monitor.
[2023-06-22 04:33] LABS: Hematocrit 32.8 % (37.0-47.0); Hemoglobin 11.6 g/dL (12.0-16.0); Mean Corp Hgb Conc. 35.4 g/dL (33.0-37.0); Mean Corpuscular Hgb 31.5 pg (27.0-31.0); Mean Corpuscular Volume 89.1 fL (81.0-99.0); Mean Platelet Volume 9.1 fL (7.4-10.4); Platelet Count 242 10^3/uL (130-400); Red Blood Cell Count 3.68 10^6/uL (4.20-5.40); Red Cell Dist. Width 12.6 % (11.5-14.5)
--- NOTE | 2023-06-22 04:37 | PTCARENOTE ---
Pt awake and conversing with staff. States she wishes she were and that her son probably hates her. Reassurance given that family is very concerned for her and cares for her. Family had called in last night for an update and expressed concern
to this nurse. States she's thirsty-able to tolerate drinking water without difficulty. Pt unable to void-bladder scanned and then straight cathed. ETCO2 monitor removed.
[2023-06-22 04:57] LABS: ALT (SGPT) 26 U/L (0-35); AST (SGOT) 21 U/L (14-36); Albumin 2.5 g/dl (3.5-5.0); Alkaline Phosphatase 75 U/L (38-126); Blood Urea Nitrogen 6 mg/dl (7-17); Calcium 8.6 mg/dl (8.4-10.2); Carbon Dioxide 28 mmol/L (22-30); Chloride 105 mmol/L (98-107); Estimated Creatinine Clearance 69 ml/min; Glucose 133 mg/dl (70-99); Magnesium 2.1 mg/dl (1.6-2.3); Potassium 3.5 mmol/L (3.5-5.1); Sodium 137 mmol/L (135-145); Total Bilirubin 0.5 mg/dl (0.2-1.3); Total Protein 4.8 g/dl (6.3-8.2); eGFR > 60.00
[2023-06-22] MEDS: UNASYN IV ×4 (05:15→23:49)
[2023-06-22 05:52] LABS: Free T4 1.16 ng/dl (0.78-2.19)
--- NOTE | 2023-06-22 07:46 | W.PN.INTV ---
Today's Communication / Plan
Recommendations
Continue antibiotics until urine cultures identify organism
Begin oral intake
Increase activity
Psychiatry evaluation noted-will need inpatient psychiatric treatment
Transfer out of ICU-call pulmonary if respiratory issues arise
Assessment
-
72-year-old female who was found unresponsive on the floor suspected having taken an unknown amount of Xanax after her last week. Med Specialist consulted for overdose/critical care management 06/21/2023.
Assessment
Xanax overdose-suspect intentional intentional-recent intense grieving the loss of her last week from pancreatic cancer
Urine drug screen positive for benzodiazepines
Depression
Mild leukocytosis
UTI suspected
Mild hypokalemia
Conditions present prior to admission:
Appendectomy.
Hysterectomy.
Tubal ligation.
Breast augmentation with subsequent removal of implants.
Plan
Neurologic status much improved-now alert and oriented, somnolent, nonfocal
Supplemental oxygen-attempt to wean to room air
Aspiration precautions continue
End-tidal CO2 without obvious hypercapnia
CPK within normal limits
Intravenous fluids-begin to decrease if eating and drinking
For potential benzodiazepine overdose
Monitor for sedation, airway protection, intubate if necessary, supportive care
Consider propylene glycol toxicity if parenteral diazepam or lorazepam was used
Flumazenil could be considered
Intravenous fluids
Warming blanket
Pressors not needed
UTI-cultures pending
Unasyn initiated for possible aspiration-doubt aspiration-likely atelectasis-change antibiotics in the next 24 hours once urine cultures back-suspect couple doses of Unasyn may have treated her UTI altogether-will leave antibiotics up to primary
service
Suspected intentional as patient was grieving significantly with the loss of her recently, however, she had not slept in 2 nights and she may have just taken quite a few Xanax to help her sleep-we will need to further question her once she
wakes up.
Psychiatric evaluation noted-intentional overdose in setting of acute grief due to loss of spouse-will need referral to inpatient psychiatric treatment
1:1 continues
DVT prophylaxis-Lovenox added
Aspiration precautions
Begin nutrition
Begin out of bed and ambulation
Dr. Stewart reviewed with son and jkkwssqy-ye-rng at the bedside and updated in regards to current clinical condition, expected treatment plan and potential prognosis on 06/21/2023
Stable for transfer out of ICU-call pulmonary if respiratory issues arise
Diagnostic data:
Chest x-ray 06/21/2023-NAD, mild bibasilar subsegmental atelectasis
Subjective Dataa
Subjective Data
Date of Service:
Date of Service: June 22, 2023
Chief Complaint: Med Specialist Follow Up and Pulmonary Follow Up
Subjective:
Patient much more alert, oriented, no complaints of shortness of breath, chest congestion, productive cough, chest pain or abdominal pain
Review of Systems
General: Other (Per HPI)
Objective Data
Data Reviewed
Vital Signs / I&O / Oxygen:
Vital Signs
Temp Pulse Resp BP Pulse Ox
98.2 F 73 17 109/59 95
06/22/23 04:00 06/22/23 06:00 06/22/23 06:00 06/22/23 06:00 06/22/23 06:00
Intake and Output
06/21/23 06/22/23 06/23/23
06:59 06:59 06:59
Intake Total 1825 / 1950 125 / 125
Output Total 1200 / 1200
Balance 625 / 750 125 / 125
SaO2 95
Physical Exam
General: Respiratory Distress (n) and Comfortable
HEENT: Normocephalic, Anicteric and Moist Mucous Membranes
Cardiovascular: Regular Rhythm
Respiratory: Wheeze (n), Crackles (n), Rhonchi (n), Non-Labored Respirations, Accessory Resp Muscle Use (n) and Stridor (n)
GI: Soft, Non Distended and Non Tender
Neurology: Awake, Alert and No Motor Deficits
Skin: Warm, Good Color, Cyanosis (n) and Jaundice (n)
Labs/Micro/Reports
Lab Data
06/22/23 04:23
06/22/23 04:23
Laboratory Results
06/21/23
11:58
PT 11.9
INR 0.89
APTT 24.8
--- NOTE | 2023-06-22 10:28 | CS.PSYCHR ---
Consult Summary - Psychiatry
-
Pt is a 72 yo female, without significant past medical history, who presented following an apparent overdose on Xanax.� She was found on the floor of her bathroom after her family had not heard from her for over 24 hours. EMS reported presence of 2
bottles of Xanax; unclear who much was taken.� Patient's recently on hospice from pancreatic cancer on 06/16/23. Pt seen lying in bed, awake but somewhat slowed. Pt answering questions, speech soft and hesitant. Pt states she
intentional overdosed with suicidal intent. Pt reports feeling overwhelmed leading up to 's , with financial and family matters. Pt states feeling that 'my life is over.' Pt was reluctant to answer further questions. She did state
that she took some of her 's Xanax/benzo as well as her own. Pt filled a Xanax 0.25 mg prescription almost 1 year ago- July 2022 per [place] PDMP; she denies taking any benzo on a regular basis.
Psych Hx: Prescribed Xanax 0.25 mg once in 2021 and once in Jul 2022; unable to fully assess; pt seemed to deny hx of depression
SH: on 06/16 (one week ago), unable to obtain full history
MSE: awake but slowed, soft-spoken, hesitant to answer, reluctant to discuss situation further after a few questions. Affect/ mood despondent/depressed. Pt noted having continued wish to ; pt states she feels overwhelmed and hopeless. No
overt signs of psychosis. No agitation.
Imp: Intentional OD in setting of acute grief d/t loss of spouse. Pt appears to having continued SI/wish to
Rec: Continue supportive measures. Based on today's presentation, pt will likely need referral to inpatient psychiatric treatment. Will need to follow and re-assess pt's mental status over the next couple days to determine the best disposition
--- NOTE | 2023-06-22 11:35 | CM ---
CM following re: discharge planning.
Discussed in Rounds, reviewed pt's chart, met with pt and spoke to pt's son Luis Felipe.
Pt is a 72 year old female, admitted with primary dx of Intentional OD on Xanax.
Pt presents lying in the bed with depressed mood, sad affect, somewhat slowed and seems very weak/tired. Pt expressed little interest to talk and this CM offered to meet with her later today when pt might have more energy and pt nicely accepted it.
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 Luis Felipe stated he is
the only son and he feels that his mother has a little interest to live after she lost her and pt's son expressed his understanding that his mother has challenges with coping/grieving with the lost of her . Pt's son reports that his
mother did not have mental illness but she was always worry of everything. Pt's son expressed his understanding that pt will need some support after she will be discharged from the hospital: inpatient psych vs IOP/psychological services, group
support, etc.
Per son, pt has been living alone in a 2SH since her last week. 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
Psychiatry evaluation noted - inpatient psychiatric services will be recommended. per psychiatrist, pt will be re-evaluated for the best possible disposition, support and psychotherapy/psychological services.
D/C plan: most likely inpatient psychiatric level of care, 201 commitment. Psychiatry to re-evaluate for final disposition.
CM will follow with discharger plan updates as hospitalization progresses
--- NOTE | 2023-06-22 12:00 | PTCARENOTE ---
Pt seen by psychiatrist (Santiago) - admits that overdose was intentional and still expresses SI. Pt to remain 1:1 observation.
--- NOTE | 2023-06-22 12:00 | W.PN.HOSP.TC ---
Today's Communication/Plan
-
transfer to tele
Assessment / Plan
Assessment / Plan
Apparent Intentional Xanax Overdose
-Patient no longer requires intensive monitoring in ICU
-Consult Shiftman
-Consult Psych
-Start Levophed for hypotension
-Continue BIPAP for respiratory support
- CXR bibasilar atelectasis
-Continue IVFs
WBC 11.0-->7.0
Psych would like pt to continue to remain on 1:1
repeat CXR in AM, continue abx for now
DVT proph: SCDs
Code Status: Full Code
reviewed with sonLuis Felipe
Anticipated Discharge: 24 - 48 hours
Subjective/Interval History
-
Date of Service: June 22, 2023
Much more awake, talking softly, but answering questions
Objective Data
-
Labs:
Laboratory Results
06/22/23
04:23
WBC 7.0
Hgb 11.6 L
Hct 32.8 L
Plt Count 242
Sodium 137
Potassium 3.5
Chloride 105
Carbon Dioxide 28
BUN 6 L
Creatinine 0.4 L
Glucose 133 H
Calcium 8.6
Total Bilirubin 0.5
AST 21
ALT 26
Alkaline Phosphatase 75
Vital Signs:
Vital Signs
Temp Pulse Resp BP Pulse Ox
98.8 F 88 14 107/88 94
06/22/23 11:22 06/22/23 11:00 06/22/23 11:00 06/22/23 11:00 06/22/23 10:00
I&O
06/21/23 06/22/23 06/23/23
06:59 06:59 06:59
Intake Total 1825 / 1950 1165 / 1165
Output Total 1200 / 1200
Balance 625 / 750 1165 / 1165
Review of Systems
-
History Source: Patient and Family (son, Luis Felipe in room)
Constitutional: Denies Fever
EENT: Reports No Symptoms Reported
Respiratory: Reports No Symptoms
Cardiac: Reports No Symptoms
Abdomen/GI: Reports No Symptoms
Musculoskeletal: Reports No Symptoms
Physical Exam
-
General: Well Developed, Well Nourished and No Apparent Distress
HEENT: Normocephalic, Atraumatic and Moist Mucous Membranes
Respiratory: Clear to Auscultation; Negative Wheezes, Rales or Rhonchi
Cardiac: Regular Rhythm and S1/S2
GI: Soft, Nontender and Nondistended
Musculoskeletal: No Clubbing, No Cyanosis and No Edema
Neuro: Awake, Alert and Oriented
--- NOTE | 2023-06-22 16:23 | PTCARENOTE ---
Patient arrived to room 2133 from ICU. patient oriented to room, use of call vega. Patient is on 1:1 for SI. 1:1 present in room. Plan of care ongoing. no s/s of distress noted at this time.
[2023-06-22] MEDS: LOVENOX 40 MG SC (17:45)
[2023-06-22] MEDS: TYLENOL 650 MG PO (20:14)
[2023-06-23] MEDS: D5/0.45%NSS with KCL 20 MEQ 1000 IV (03:44)
[2023-06-23] MEDS: UNASYN IV (05:46)
[2023-06-23 06:12] LABS: % Basophils 0.3 % (0-2); % Eosinophils 1.2 % (0-6); % Immature Granulocytes 0.3 % (0-0.5); % Monocytes 11.1 % (1.7-9.3); % Neutrophils 62.1 % (42.2-75.2); Absolute Eosinophils 0.1 10^3/uL (0-0.7); Absolute Lymphocytes 1.4 10^3/uL (1.2-3.4); Absolute Monocytes 0.6 10^3/uL (0.1-0.6); Absolute Neutrophils 3.6 10^3/uL (1.4-6.5); Hematocrit 33.4 % (37.0-47.0); Hemoglobin 11.4 g/dL (12.0-16.0); Mean Corp Hgb Conc. 34.1 g/dL (33.0-37.0); Mean Corpuscular Hgb 30.6 pg (27.0-31.0); Mean Corpuscular Volume 89.5 fL (81.0-99.0); Mean Platelet Volume 9.4 fL (7.4-10.4); Nucleated Red Blood Cells % 0 %; Platelet Count 229 10^3/uL (130-400); Red Blood Cell Count 3.73 10^6/uL (4.20-5.40); Red Cell Dist. Width 12.4 % (11.5-14.5); White Blood Cell Count 5.8 10^3/uL (4.8-10.8)
[2023-06-23 06:34] LABS: Blood Urea Nitrogen 8 mg/dl (7-17); Calcium 8.6 mg/dl (8.4-10.2); Carbon Dioxide 28 mmol/L (22-30); Chloride 109 mmol/L (98-107); Estimated Creatinine Clearance 70 ml/min; Glucose 106 mg/dl (70-99); Potassium 3.5 mmol/L (3.5-5.1); Sodium 137 mmol/L (135-145); eGFR > 60.00
[2023-06-23 06:41] LABS: Procalcitonin < 0.05 ng/ml (0.0-0.25)
--- NOTE | 2023-06-23 09:40 | W.PN.HOSP.TC ---
Today's Communication/Plan
-
change abx to oral for UTI and probable aspiration bronchitis
Assessment / Plan
Assessment / Plan
Apparent Intentional Xanax Overdose
-Patient no longer requires intensive monitoring in ICU
-Consult Document Specialist
-Consult Psych
- Levophed for hypotension dc'ed
-no longer needs BIPAP for respiratory support
- CXR bibasilar atelectasis
06/23 CXR: No focal opacification to suggest pneumonia.
-stop IVFs, diet has been advanced and she is tolerating
WBC 11.0-->7.0-->5.8
Psych would like pt to continue to remain on 1:1, will continue until cleared by them to stop
Dispo will be as per psych
UTI
pansensitve E.Coli
probably had some degree of aspiration bronchitis when first admitted, currently no evidence of PNA and lung sound clear, will change abx to complete with oral Rx
DVT proph: SCDs
Code Status: Full Code
reviewed with sonLuis Felipe 06/22
Anticipated Discharge: 24 - 48 hours
Subjective/Interval History
-
Date of Service: June 23, 2023
Alert, conversant, voice is stronger
Objective Data
-
Labs:
Laboratory Results
06/23/23
05:44
WBC 5.8
Hgb 11.4 L
Hct 33.4 L
Plt Count 229
Sodium 137
Potassium 3.5
Chloride 109 H
Carbon Dioxide 28
BUN 8
Creatinine 0.4 L
Glucose 106 H
Calcium 8.6
Vital Signs:
Vital Signs
Temp Pulse Resp BP Pulse Ox
97.9 F 77 18 122/74 96
06/23/23 07:02 06/23/23 07:02 06/23/23 07:02 06/23/23 07:02 06/23/23 07:02
I&O
06/22/23 06/23/23 06/24/23
06:59 06:59 06:59
Intake Total 1825 / 1950 2375 / 2375
Output Total 1200 / 1200 900 / 900
Balance 625 / 750 1475 / 1475
Review of Systems
-
History Source: Patient
Constitutional: Denies Fever
EENT: Reports No Symptoms Reported
Respiratory: Reports No Symptoms; Denies Trouble Breathing
Cardiac: Reports No Symptoms; Denies Chest Pain
Abdomen/GI: Reports No Symptoms
Musculoskeletal: Reports No Symptoms
Physical Exam
-
General: Well Developed, Well Nourished and No Apparent Distress
HEENT: Normocephalic, Atraumatic and Moist Mucous Membranes
Respiratory: Clear to Auscultation (coarse rales noted on admission, now resolved); Negative Wheezes, Rales or Rhonchi
Cardiac: Regular Rhythm and S1/S2
GI: Soft, Nontender and Nondistended
Musculoskeletal: No Clubbing, No Cyanosis and No Edema
Neuro: Awake, Alert and Oriented
--- NOTE | 2023-06-23 12:51 | W.PN.UPDATE ---
Update Note
Progress Note Update
patient seen chart reviewed. spoke with nurse case management. daughter in law at bedside and seemed very supportive. the patient is here bc of an overdose of xanax in the wake of her h's from pancreatic ca about a week or so ago. she did not call for
help rather she was found by the family who were concerned she did not answer her phone when they called. the patient is now saying she is no longer suicidal although the family does NOT trust this is true. she says she has reason to live ...kids
grandkids but they are not convinced. i proposed the possibility of php at [facility] as long as the patient is willing to stay w son and his so they can monitor how she is doing. i would NOT send her home alone. frankly i think her psych care would
be better in the [facility] than on a psych in patient unit. discussed making this referral to case mgt who will call re availability. d in law mentioned an antidepressant. patient did not have hx of depression prior to h 's illness and
. an antidep will not make grief go away however would consider starting one in the next day or so but it will not manufacture a miracle. continue one to one for today.
--- NOTE | 2023-06-23 15:40 | CM ---
Reviewed the chart notes and spoke with attending psychiatrist (Dr. Gee). Per psychiatrist, she would be agreeable with the patient discharging to the patient's son's house and doing a partial outpatient hospital program. CM discussed with the
son and gvrlqpnx-ko-upb discharge arrangements. Per jciaxraq-pm-hfj, they want her to go somewhere where she can have a private room and they will transport to treatment center. Explained to both son and lyvrljbd-fy-vce that no facility will
accept unless the patient receives treatment in an inpatient psychiatric facility. Family said they were unaware that they would need to be responsible for following the patient at home and transporting to treatment center. Dr. Gee did explain
this to the family during her meeting. Explained to both that CM called [facility] ([phone]) spoke with Edwina at request of Dr. Gee. Per Edwina, they do not accept Medicare, but asked that clinicals be faxed for review for possible
vht-bm-tghiog billing. Call placed to [facility], spoke with Sagar ([phone]). They also do not accept Medicare, but will do wck-ds-fiermz billing. Per Sagar, the program has meetings three times weekly for group and individual
counseling. The cost is $500/week. There is an initial cost of $150 for evaluation. First available evaluation appointment is 29 June 2023, at 1:30pm. Was unable to provide family with [facility] information due to them leaving
after hearing that they would need to be responsible for the patient. CM continues to be available to patient/family and is monitoring medical plan for needs at discharge.
Plan: Discharge plans will depend on whether the patient will stay with the son and receive outpatient treatment or patient will need inpatient treatment at a facility willing to accept.
[2023-06-23] MEDS: LOVENOX 40 MG SC (17:27)
--- NOTE | 2023-06-23 18:50 | PTCARENOTE ---
pt very anxious at bedside and daughter is concerned. nurse reached out to psych and MD. unable to reach psych. verbal taken for prn xanax. see MAR for proper orders.
[2023-06-23] MEDS: AUGMENTIN 875 MG/125 MG 1 TABLET PO (20:01)
[2023-06-24] MEDS: AUGMENTIN 875 MG/125 MG 1 TABLET PO ×2 (08:09→20:05)
--- NOTE | 2023-06-24 11:21 | W.PN.UPDATE ---
Update Note
Progress Note Update
patient see chart reviewed. spoke with patient's daughter in law reshma. the family feels strongly that patient remains a suicidal risk and they are extremely concern that if she is discharged to home she will overdose again. while the patient
is not saying this she is clearly very depressed and grieving the loss of her . i do agree that she is still at risk. reshma and i spoke with mrs machado about in patient hospitalization and she is willing to go in patient. cm is
looking into javier jacques and alexis foreman. discussed with patient starting zoloft 25 mg side effects discussed. ssri will not erase her grief but may help her to deal with anxiety which has been an issue for some time. for now continue one to
one.
--- NOTE | 2023-06-24 12:20 | W.PN.HOSP.TC ---
Today's Communication/Plan
-
await dispo to inpt psych
Assessment / Plan
Assessment / Plan
Apparent Intentional Xanax Overdose
-Consult Psych
- Levophed for hypotension dc'ed
-no longer needs BIPAP for respiratory support
- CXR bibasilar atelectasis
06/23 CXR: No focal opacification to suggest pneumonia.
-stopped IVFs, diet has been advanced and she is tolerating
WBC 11.0-->7.0-->5.8
Psych would like pt to continue to remain on 1:1, will continue until cleared by them to stop
Dispo will be as per psych, currently planning for [facility]pt psych, [facility]. Await input from CM
UTI
pansensitve E.Coli
probably had some degree of aspiration bronchitis when first admitted, currently no evidence of PNA and lung sound clear, will change abx to complete with oral Rx
DVT proph: SCDs
Code Status: Full Code
reviewed with son, Luis Felipe 06/22
Anticipated Discharge: 24 - 48 hours
Subjective/Interval History
-
Date of Service: June 24, 2023
Awake, alert, more conversant
Objective Data
-
Vital Signs:
Vital Signs
Temp Pulse Resp BP Pulse Ox
97.7 F 77 16 151/81 98
06/24/23 11:00 06/24/23 11:00 06/24/23 11:00 06/24/23 11:00 06/24/23 11:00
I&O
06/23/23 06/24/23 06/25/23
06:59 06:59 06:59
Intake Total 2375 / 2375 1680 / 1680
Output Total 900 / 900
Balance 1475 / 1475 1680 / 1680
Review of Systems
-
History Source: Patient
Constitutional: Denies Fever
EENT: Reports No Symptoms Reported
Respiratory: Reports No Symptoms; Denies Trouble Breathing
Cardiac: Reports No Symptoms; Denies Chest Pain
Abdomen/GI: Reports No Symptoms
Musculoskeletal: Reports No Symptoms
Neuro: Denies Dizzy, Headache or Weakness
Physical Exam
-
General: Well Developed, Well Nourished and No Apparent Distress
HEENT: Normocephalic, Atraumatic and Moist Mucous Membranes
Respiratory: Clear to Auscultation (coarse rales noted on admission, now resolved, lungs totally clear); Negative Wheezes, Rales or Rhonchi
Cardiac: Regular Rhythm and S1/S2
GI: Soft, Nontender and Nondistended
Musculoskeletal: No Clubbing, No Cyanosis and No Edema
Neuro: Awake, Alert and Oriented
[2023-06-24] MEDS: ZOLOFT 25 MG PO (13:07)
--- NOTE | 2023-06-24 15:10 | CM ---
Reviewed Psychiatrist recommendations with Yoselin tj-in-law, for partial hospitalization only if family can manage on other hours 07/12. Family says it is not feasible for patient to live in their home 07/12 because they have young children and
they feel patient may attempt overdose again. Family wants inpatient psych. This CM notified Psychiatrist and she was agreeable to inpatient psych facility only if patient would agree to voluntary 201. Patient is willing to voluntarily admit to
inpatient psych. Psychiatrist visited and re-evaluated patient and wrote note. Family preferences are [facility] and [facility]. CM made calls and forwarded records. Spoke with Anson Orellana, liaison at [facility]. Patient will
need to be on 1:1 for 24 hours. They cannot accept today due to not having staff for the 1:1. Anson is confident they will have a bed and 1:1 staff on 06/25/23. He asked that CM call him before 9:00am on 06/25/23 to confirm bed availability. Anson # is
[phone],
--- NOTE | 2023-06-24 15:16 | PN.CDI ---
CDI
- -
CDI:
Physician Documentation Request
Admit Date: 06/21/23 15:07
Dear Doctor Sunil,
Please review the following and provide your response in the progress notes.
Clinical Indicators:
H+P, 06/21
#Apparent Intentional Xanax Overdose
#-Patient requires intensive monitoring in ICU
#-Start Levophed for hypotension
#-Continue BIPAP for respiratory support
PN, 06/23
#change abx to oral for UTI and probable aspiration bronchitis
PN, 06/24
#Apparent Intentional Xanax Overdose
#- Levophed for hypotension dc'ed
#-no longer needs BIPAP for respiratory support
#probably had some degree of aspiration bronchitis when first admitted,
#...currently no evidence of PNA and lung sound clear, ...
Please clarify the following:
Aspiration pneumonitis/Bronchitis was present on admission and is now resolved.
Aspiration pneumonitis/bronchitis was present on admission and is still being monitored, evaluated or treated
Aspiration pneumonitis/bronchitis was ruled out
Aspiration pneumonitis/bronchitis is still a likely, suspected, probable diagnosis
Other
Use of terms such as suspected, likely, concern for, or probable (associated with a specific diagnosis that is being evaluated, monitored, or treated as if it exists) are acceptable and can be coded in the inpatient setting, when documented at the
time of discharge.
Thank you,
Dania Parker [employer]
CDI Specialist
please contact via tiger text
Please use your independent medical judgment in providing your response.
[2023-06-24] MEDS: LOVENOX 40 MG SC (17:48)
[2023-06-24] MEDS: XANAX 0.25 MG PO (22:42)
[2023-06-25] MEDS: AUGMENTIN 875 MG/125 MG 1 TABLET PO ×2 (09:03→20:52)
[2023-06-25] MEDS: ZOLOFT 25 MG PO (09:03)
--- NOTE | 2023-06-25 10:04 | W.PN.HOSP.TC ---
Today's Communication/Plan
-
await dispo. Continue 1:1 as per psych
Assessment / Plan
Assessment / Plan
Apparent Intentional Xanax Overdose
-Consult Psych
- Levophed for hypotension dc'ed
-no longer needs BIPAP for respiratory support
- CXR bibasilar atelectasis
06/23 CXR: No focal opacification to suggest pneumonia.
-stopped IVFs, diet has been advanced and she is tolerating
WBC 11.0-->7.0-->5.8
Psych would like pt to continue to remain on 1:1, will continue until cleared by them to stop
Dispo will be as per psych, currently planning for inpt psych, [facility]. Await input from CM
UTI
pansensitve E.Coli
Pt related that she had loose stools. Requested next time moved bowels nurse to assess and if confirms to let me know and will order C.Diff check
probably had some degree of aspiration bronchitis when first admitted, currently no evidence of PNA and lung sound clear, change abx to complete with oral Rx, but will complete treatment and follow
DVT proph: SCDs
Code Status: Full Code
reviewed with son, Luis Felipe 06/22
Anticipated Discharge: 24 - 48 hours
Subjective/Interval History
-
Date of Service: June 25, 2023
Awake, alert, flat affect
Objective Data
-
Vital Signs:
Vital Signs
Temp Pulse Resp BP Pulse Ox
97.8 F 77 18 144/73 99
06/25/23 06:55 06/25/23 06:55 06/25/23 06:55 06/25/23 06:55 06/25/23 06:55
I&O
06/24/23 06/25/23 06/26/23
06:59 06:59 06:59
Intake Total 1680 / 1680 1400 / 1400
Balance 1679
Review of Systems
-
History Source: Patient
Constitutional: Denies Fever
EENT: Reports No Symptoms Reported
Respiratory: Reports No Symptoms; Denies Trouble Breathing
Cardiac: Reports No Symptoms; Denies Chest Pain
Abdomen/GI: Reports No Symptoms
Musculoskeletal: Reports No Symptoms
Neuro: Denies Dizzy, Headache or Weakness
Physical Exam
-
General: Well Developed, Well Nourished and No Apparent Distress
HEENT: Normocephalic, Atraumatic and Moist Mucous Membranes
Respiratory: Clear to Auscultation (coarse rales noted on admission, now resolved, lungs totally clear); Negative Wheezes, Rales or Rhonchi
Cardiac: Regular Rhythm and S1/S2
GI: Soft, Nontender and Nondistended
Musculoskeletal: No Clubbing, No Cyanosis and No Edema
Neuro: Awake, Alert and Oriented
--- NOTE | 2023-06-25 11:03 | W.PN.UPDATE ---
Update Note
Progress Note Update
patient seen chart reviewed. patient quietly lying in bed .she does answer questions but rather briefly with little elaboration. she remains very sad. 's is today. d in law felt that mrs machado really did not want to go and felt
more comfortable remaining here. spoke to cm and nursing. nursing reports no issues w her care. cm is working on getting a bed in either [place] or [place] hopefully today latest tomorrow. no changes made in medications. will leave
one to one in place for now. encouraged patient to talk w one to one. psych will check in w her tomorrow.
--- NOTE | 2023-06-25 11:41 | CM ---
Addendum entered by Veronika Morales RN 06/25/23 15:32:
Call placed again to [facility] ([phone]). They are requesting updtd notes, labs, vs, and Covid screening. Note, labs and vs faxed ([phone]). Covid is pending.
Addendum entered by Veronika Morales RN 06/25/23 13:44:
Original 201 placed on chart.
Addendum entered by Veronika Morales RN 06/25/23 11:50:
Per An[facility], [facility] not have a bed today or over weekend. Can try back on Wednesday if still needing a bed.
Original Note:
Reviewed the chart notes and spoke with the patient and son at the bedside. CM spoke with Anson from [facility] first thing this morning and he was to check bed availability. Additional three phone messages left for [facility] inquiring if they will be
able to accept the patient, awaiting call back. Call placed to [facility] and spoke with Clark, they are reviewing the patient's clinical and will let CM know if able to accept. CM continues to be available to patient/family and is
monitoring medical plan for needs at discharge.
Plan: Discharge to psychiatric facility once bed found.
[2023-06-25] MEDS: LOVENOX 40 MG SC (18:04)
[2023-06-25 18:23] LABS: COVID-19 Antigen Negative (Negative)
[2023-06-25] MEDS: XANAX 0.25 MG PO (21:26)
[2023-06-26] MEDS: XANAX 0.25 MG PO ×3 (03:06→21:20)
[2023-06-26] MEDS: ZOLOFT 25 MG PO (07:49)
[2023-06-26] MEDS: AUGMENTIN 875 MG/125 MG 1 TABLET PO (07:49)
--- NOTE | 2023-06-26 08:07 | W.PN.HOSP.TC ---
Addendum entered and electronically signed by Alejandro Barber MD 06/26/23 16:20:
Pt had mentioned she was having loose stools, but relayed that this is a chronic issue
Ordered stool for C.Diff as she had been on abx for potential aspiration bronchitis
she has had no BM's today, will dc the order
Original Note:
Today's Communication/Plan
-
dc abx
order probiotic
await transfer as per psychiatry
Assessment / Plan
Assessment / Plan
Apparent Intentional Xanax Overdose
-Consulted Psych
- Levophed for hypotension dc'ed
-no longer needs BIPAP for respiratory support
- CXR bibasilar atelectasis
06/23 CXR: No focal opacification to suggest pneumonia.
-stopped IVFs, diet has been advanced and she is tolerating
WBC 11.0-->7.0-->5.8
Psych would like pt to continue to remain on 1:1, will continue until cleared by them to stop
Dispo will be as per psych, currently planning for inpt psych, [facility]. Await input from CM
UTI
pansensitve E.Coli
Pt related that she had loose stools. Requested next time moved bowels nurse to assess and if confirms to let me know and will order C.Diff check. States intermittent episodes preceded admission, and does not believe has worsened. For now, UTI
should have received adequate treatment and aspiration bronchitis appears to have fully resolved, WBC nl, no fever, lungs are fully clear and she is not coughing. Will dc abx after this morning's dose and order probiotic
probably had some degree of aspiration bronchitis when first admitted, currently no evidence of PNA and lung sound clear, changed abx to complete with oral Rx and will stop at this point
DVT proph: SCDs
Code Status: Full Code
reviewed with sonLuis Felipe 06/22
Anticipated Discharge: > 48 hours
Subjective/Interval History
-
Date of Service: June 26, 2023
Awake, alert, she is wondering when transfer to psych facility will happen
Objective Data
-
Vital Signs:
Vital Signs
Temp Pulse Resp BP Pulse Ox
98.3 F 88 18 116/76 95
06/26/23 07:00 06/26/23 07:00 06/26/23 07:00 06/26/23 07:00 06/26/23 07:00
I&O
06/25/23 06/26/23 06/27/23
06:59 06:59 06:59
Intake Total 1400 / 1400 2039 520 / 520
Balance 1400 / 1400 2039 520 / 520
Review of Systems
-
History Source: Patient
Constitutional: Denies Fever
EENT: Reports No Symptoms Reported
Respiratory: Reports No Symptoms; Denies Trouble Breathing
Cardiac: Reports No Symptoms; Denies Chest Pain
Abdomen/GI: Reports Diarrhea (not truly diarrhea, but has been having loose stools (states has been ongoing prior to admission))
Musculoskeletal: Reports No Symptoms
Neuro: Denies Dizzy, Headache or Weakness
Physical Exam
-
General: Well Developed, Well Nourished and No Apparent Distress
HEENT: Normocephalic, Atraumatic and Moist Mucous Membranes
Respiratory: Clear to Auscultation (coarse rales noted on admission, now resolved, lungs totally clear); Negative Wheezes, Rales or Rhonchi
Cardiac: Regular Rhythm and S1/S2
GI: Soft, Nontender and Nondistended
Musculoskeletal: No Clubbing, No Cyanosis and No Edema
Neuro: Awake, Alert and Oriented
[2023-06-26] MEDS: VISBIOME 2 CAP PO (09:03)
--- NOTE | 2023-06-26 13:19 | CM ---
CM following re: discharge planning.
Reviewed pt's chart, met with pt. Pt's son and daughter in law at bedside.
CM called [facility] transfer center to check on the status of the referral. Covid test rest result with 201 and C-Diff results requested.
MD is aware of C-Diff testing, no results available yet.
CM faxed COVID test result with 201 form to [facility]. Awaiting for determination.
D/C plan: possible [facility].
CM will follow to assist pt with discharge to [facility].
[2023-06-26] MEDS: LOVENOX 40 MG SC (17:27)
[2023-06-27] MEDS: ZOLOFT 25 MG PO (07:35)
[2023-06-27] MEDS: VISBIOME 2 CAP PO (07:35)
[2023-06-27] MEDS: XANAX 0.25 MG PO ×2 (07:35→21:05)
--- NOTE | 2023-06-27 09:00 | W.PN.HOSP.TC ---
Today's Communication/Plan
-
await accepting facility
Assessment / Plan
Assessment / Plan
Apparent Intentional Xanax Overdose
-Consulted Psych, await transfer to Psych facility
- Levophed for hypotension dc'ed
-no longer needs BIPAP for respiratory support
- CXR bibasilar atelectasis
06/23 CXR: No focal opacification to suggest pneumonia.
-stopped IVFs, diet has been advanced and she is tolerating
WBC 11.0-->7.0-->5.8
Psych would like pt to continue to remain on 1:1, will continue until cleared by them to stop
Dispo will be as per psych, currently planning for inpt psych, [facility]. Await input from CM
UTI
pansensitve E.Coli. Rx completed, would recheck 1-2 weeks post dc
Pt related that she had loose stools to the nurse, who updated me. Requested next time moved bowels nurse to assess and if confirms to let me know and will order C.Diff check. But pt has not had any bowel movements since that time (now 2days)
States intermittent episodes of loose stools preceded admission, and does not believe has worsened. Pt believes this is dietary related. This is not C. Diff and should not affect planned transfer to psych facility.
For now, UTI should have received adequate treatment and aspiration bronchitis appears to have fully resolved, WBC nl, no fever, lungs are fully clear and she is not coughing. abx have been stopped.
await transfer to psych facility. updated CM yesterday
DVT proph: SCDs
Code Status: Full Code
reviewed with sonLuis Felipe 06/22
Anticipated Discharge: 24 - 48 hours
Subjective/Interval History
-
Date of Service: June 27, 2023
Awaiting transfer to [facility] hospital
Objective Data
-
Vital Signs:
Vital Signs
Temp Pulse Resp BP Pulse Ox
98.1 F 93 20 128/76 96
06/26/23 21:22 06/26/23 21:22 06/26/23 21:22 06/26/23 21:22 06/27/23 00:08
I&O
06/26/23 06/27/23 06/28/23
06:59 06:59 06:59
Intake Total 2039
Balance 2039
Review of Systems
-
History Source: Patient
Constitutional: Denies Fever
EENT: Reports No Symptoms Reported
Respiratory: Reports No Symptoms; Denies Trouble Breathing
Cardiac: Reports No Symptoms; Denies Chest Pain
Abdomen/GI: Reports Diarrhea (not truly diarrhea, but has been having loose stools (states has been ongoing prior to admission))
Musculoskeletal: Reports No Symptoms
Neuro: Denies Dizzy, Headache or Weakness
Physical Exam
-
General: Well Developed, Well Nourished and No Apparent Distress
HEENT: Normocephalic, Atraumatic and Moist Mucous Membranes
Respiratory: Clear to Auscultation (coarse rales noted on admission, now resolved, lungs totally clear); Negative Wheezes, Rales or Rhonchi
Cardiac: Regular Rhythm and S1/S2
GI: Soft, Nontender and Nondistended
Musculoskeletal: No Clubbing, No Cyanosis and No Edema
Neuro: Awake, Alert and Oriented
--- NOTE | 2023-06-27 15:10 | CM ---
CM received call from transfer center that [facility] is willing to accept pt if 1. The 201 is fixed-the one sent was not complete and 2. details of C. Diff status.
OMID spoke with Suzette/nursing at [facility] who explained that Dr. Hood reviewed and either a cdiff result or note is needed addressing the c diff status and a complete 201 can be faxed to [phone] for review. Suzette can be reached at # is
[phone].
Cm faxed attending progress note from today addressing the c diff status.
CM sent TT to Dr. Henderson who completed initial 201 and also to covering psychiatrist Dr. Ortiz who answered and offered to complete a new form.
Once this form is available CM will fax that to [facility].
[2023-06-27] MEDS: LOVENOX 40 MG SC (17:50)
--- NOTE | 2023-06-27 18:16 | W.PN.UPDATE ---
Update Note
Progress Note Update
Pt seen & evaluated at bedside. Appears quite sad, understandably so - remains depressed, with quiet speech and constricted but depressed affect. Seems to struggle with future orienting and processing recent events. Remains agreeable to inpatient
admission, though does express anxiety about going 'to a new place'. Offered pt some reassurance and encouraged to use social support of daughter in law, who plans to visit the following day.
Pt remains on 201 with active bed search ongoing. CM reached outregarding updating 201 for pt for [facility], unfortunately we were unable to connect so hopefully tomorrow pt is able to transfer to a psychiatric facility
[2023-06-28] MEDS: ZOLOFT 25 MG PO (08:14)
[2023-06-28] MEDS: VISBIOME 2 CAP PO (08:15)
--- NOTE | 2023-06-28 09:10 | W.PN.HOSP.TC ---
Today's Communication/Plan
-
Discharge to psychiatric facility today
Assessment / Plan
Assessment / Plan
Apparent Intentional Xanax Overdose
-Appreciate psychiatry input, continue Zoloft 25 mg daily, Xanax as needed
-Status post Levophed, blood pressure stable
-Medically stable for discharge to psych facility today
-no longer needs BIPAP for respiratory support
- CXR bibasilar atelectasis
06/23 CXR: No focal opacification to suggest pneumonia.
-stopped IVFs, diet has been advanced and she is tolerating
WBC 11.0-->7.0-->5.8
Psych would like pt to continue to remain on 1:1, will continue until cleared by them to stop
UTI
pansensitve E.Coli. Rx completed
Pt related that she had loose stools to the nurse, who updated me. Requested next time moved bowels nurse to assess and if confirms to let me know and will order C.Diff check. But pt has not had any bowel movements since that time (now 2days)
States intermittent episodes of loose stools preceded admission, and does not believe has worsened. Pt believes this is dietary related. This is not C. Diff and should not affect planned transfer to psych facility.
For now, UTI should have received adequate treatment and aspiration bronchitis appears to have fully resolved, WBC nl, no fever, lungs are fully clear and she is not coughing. abx have been stopped.
DVT proph: SCDs
Code Status: Full Code
reviewed with son, Luis Felipe 06/22
Physical Exam
General: Thin, no acute distress
HEENT: Normocephalic, Atraumatic, EOMI, MMM
Respiratory: Clear to Auscultation bilaterally
Cardiac: Normal S1/S2, Regular Rate and Rhythm
GI: Soft, Nontender, Nondistended, Normal Bowel Sounds
Extremities: No Clubbing, Cyanosis, or Edema
Neuro: Nonfocal/Grossly Intact
Psych: Appears anxious
Derm: No Visible lesions
Anticipated Discharge: Today
Subjective/Interval History
-
Date of Service: June 28, 2023
Patient reports feeling anxious about going to the psychiatric facility.
Objective Data
-
Vital Signs:
Vital Signs
Temp Pulse Resp BP Pulse Ox
98 F 76 16 132/73 97
06/28/23 07:03 06/28/23 07:03 06/28/23 07:03 06/28/23 07:03 06/28/23 07:03
I&O
06/27/23 06/28/23 06/29/23
06:59 06:59 06:59
Intake Total 1999 1180 / 1180
Balance 1999 1180 / 1180
[2023-06-28] MEDS: MIRALAX 17 GRAMS PO (09:19)
--- NOTE | 2023-06-28 10:42 | CM ---
Addendum entered by Veronika Morales RN 06/28/23 15:27:
Faxed Covid Negative test to [facility].
Addendum entered by Veronika Morales RN 06/28/23 14:10:
Patient accepted at [facility]. Patient, patient's son, and attending updated. New Covid screen needed prior to discharge.
Call report to:
Fax report to:
Medical and transport forms on chart.
Addendum entered by Veronika Morales RN 06/28/23 12:36:
IMM signed and placed on the chart.
Original Note:
Reviewed the chart notes. CM spoke with [facility] regarding their interpretation of the 201 being incomplete. CM asked attending psychiatrist to add additional information on 201 regarding treatment plan and restrictions. Updated 201 and progress
note regarding no indication to screen for c-diff faxed to ([phone]). CM continues to be available to patient/family and is monitoring medical plan for needs at discharge.
Plan: Discharge to inpatient psychiatric facility once bed found and accepted.
--- NOTE | 2023-06-28 12:05 | W.DCSUMMARY ---
Discharge Summary
Discharge Data
Date of Admission: 06/21/23
Date of Discharge: 06/28/23
-
Pending Results: No
Hospital Course
Discharge diagnosis:
Intentional Xanax overdose
Suicidal ideation
Depression/anxiety
Bereavement
Acute urinary tract infection
Consults: Psychiatry, business administration program chair
Hospital course:
72-year-old female with a past medical history of anxiety/depression on Xanax was admitted for an intentional Xanax overdose. Patient was monitored in the ICU with the business administration program chair. She was initially lethargic, and received supportive management
with oxygen, IV fluids, BiPAP as needed. She improved, and was transferred out of the ICU.
Patient admitted to being suicidal. She was seen in conjunction with psychiatry, and placed on a one-to-one observation. She was started on sertraline, and continued on Xanax as needed.
Patient did have an acute urinary tract infection. Urine cultures grew out pansensitive E. coli, she completed a full course of antibiotics.
Patient was agreeable to going to inpatient psychiatric facility for further treatment. She is medically stable for discharge. She was successfully weaned off of oxygen, and does not need BiPAP. She needs to follow-up with her primary care doctor
1 week after she leaves the psychiatric facility.
Disposition: Acute inpatient psych
Discharge planning: Required 34 minutes
Discharge Plan
-
Patient Disposition: Psych Facility
Discharge Diagnosis/Procedures: Intentional Xanax overdose, suicidal ideation, bereavement, urinary tract infection
Condition: Fair
Diet: Regular
Activity: As tolerated
Driving Restrictions: As prior to admission
Referrals:
UNKNOWN - PT DOES,NOT KNOW [Family Provider] -
Prescriptions:
New
polyethylene glycol 3350 [HealthyLax] 17 gram Powder In Packet
17 g PO DAILY Qty: 0 0RF
alprazolam 0.25 mg Tablet
0.25 mg PO Q4HPRN PRN (Reason: ANXIETY) Qty: 0 0RF
sertraline 25 mg Tablet
25 mg PO DAILY Qty: 0 0RF
Lactobac/Bifidobac [Visbiome]
2 cap PO DAILY Qty: 0 0RF
Discontinued
alprazolam 0.25 mg Tablet
0.25 mg PO HS PRN (Reason: sleep)
Patient Comments:
06/21/2023, pt. filled this med. on 07/21/2022 for 30 tablets according to PDMP.
estradiol 0.5 mg Tablet
0.5 mg PO DAILY
Discharge Orders:
Discharge Patient (As Directed); Ordered 06/28/23
Ordered By: Jaziel Leblanc
Discharge Date and Time
Discharge Date/Time: 06/28/23 16:43
[2023-06-28 14:22] LABS: COVID-19 Antigen Negative (Negative)
== END 2023-06-28 16:43 | DRG 917 ==
LOC: 2 NORTH 15:07
PROVIDERS: Physician Assistant Medical; ADMITTING PHYSICIAN Internal Medicine; ATTENDING PHYSICIAN Family Medicine; CONSULT PHYSICIAN Internal Medicine Critical Care Medicine; CONSULT PHYSICIAN Psychiatry & Neurology Psychiatry; EMERGENCY PHYSICIAN Emergency Medicine
PROC: 5A09357 Assistance with Respiratory Ventilation, Less than 24 Consecutive Hours, Continuous Positive Airway Pressure (ICD-10-PCS; 2023-06-21)
DX: T42.4X2A Poisoning by benzodiazepines, intentional self-harm, initial encounter (principal); J69.0 Pneumonitis due to inhalation of food and vomit; N39.0 Urinary tract infection, site not specified; J98.11 Atelectasis; Y92.002 Bathroom of unspecified non-institutional (private) residence as the place of occurrence of the external cause; R40.0 Somnolence; R68.0 Hypothermia, not associated with low environmental temperature; I95.9 Hypotension, unspecified; I10 Essential (primary) hypertension; B96.20 Unspecified Escherichia coli [E. coli] as the cause of diseases classified elsewhere; F41.9 Anxiety disorder, unspecified; J40 Bronchitis, not specified as acute or chronic; F32.A Depression, unspecified; E87.6 Hypokalemia; Z60.2 Problems related to living alone; Z11.52 Encounter for screening for COVID-19; Z63.4 Disappearance and death of family member; Z88.2 Allergy status to sulfonamides
CPT/HCPCS: 71045; 71046; 80048; 80053; 80143; 80179; 80306; 80307; 81003; 81015; 82550; 82962; 83735; 84145; 84439; 84443; 85025; 85027; 85610; 85730; 87077; 87086; 87186; 87811; 93005; 96360; 99285